=== PATIENT | female | born 2000 | race Caucasian/White ===

== ENCOUNTER 2023-11-23 10:11 | Outpatient (AMB) | payer BC, SELFPAY ==
--- NOTE | 2023-11-23 10:14 | AM.OFFWIN_ITS ---
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 She has previously received Heb B 3 vaccination series. No risk factors for Hep B. Denies any other needs or complaints today. [facility] Social History Patient Tobacco Use Status: Never used Tobacco Review of Systems Const All systems reviewed & are unremarkable except as noted in HPI and below Physical Exam Const General: cooperative, healthy appearing and no acute distress Nutritional Appearance: average body habitus Resp Effort & Inspection: normal respiratory effort Skin General skin exam: no rashes or lesions noted Extrem General: Yes no clubbing, cyanosis or edema Psych Appearance: grossly normal Mental Status: mental status grossly normal Speech and movement: Normal speech and movement present Assessment & Plan Assessment & Plan (1) Need for hepatitis B screening test: Code(s): Z11.59 - Encounter for screening for other viral diseases Plan: Hep B antibody test ordered for this patient who needs titer done for a [employer] nursing school clinical requirement. Will notify her of results once available. All questions were answered and she agrees to plan. Orders: Orders Hepatitis BE Antibody Today Z11.59 - Encounter for screening for other viral diseases Coding Level of Care Code New Pt Level 2 (13075) Diagnoses Need for hepatitis B screening test Z11.59
[2023-11-23 10:22] VITALS: BP 124/70; PULSE 70; TEMP 36.3; O2SAT 99; BMI 23.7
== END 2023-11-23 10:35 | disposition home or self-care (01) ==
PROVIDERS: Visit Provider Nurse Practitioner Family
DX: Z11.59 Encounter for screening for other viral diseases (principal)
CPT/HCPCS: 99202

== ENCOUNTER 2023-11-23 10:29 | Outpatient (REF) | payer BC, SELFPAY ==
[2023-11-25 21:28] LABS: Hepatitis BE Antibody NON-REACTIVE (NON-REACTIVE)
== END 2023-11-23 10:30 | disposition home or self-care (01) ==
LOC: HO.HMGCLDS 10:29
PROVIDERS: Visit Provider Nurse Practitioner Family
DX: Z11.59 Encounter for screening for other viral diseases (principal)
CPT/HCPCS: 36415; 86707